=== PATIENT | male | born 1950 | race Caucasian/White ===

== ENCOUNTER 2022-08-09 10:16 | Inpatient (IN) | payer MEDICARE ==
[~2022-08-09] VITALS: Ht 180.3 cm; Wt 82.7 kg
[~2022-08-09 10:16] MED LIST: ATOR20TA86 PO; LISI-894 PO
[2022-08-09] MEDS ORDERED: ATEN-187 PO (10:44)
[2022-08-09] MEDS ORDERED: SODIUM CHLORIDE 0.9% 100 ML ONE (10:55)
[2022-08-09] MEDS ORDERED: IOHEXOL 350 MG/ML 100 ML VIAL ONE (10:55)
[2022-08-09 11:06] LABS: GLUCOMETER DEV NAME(LOC) ERT.5; GLUCOSE,POINT OF CARE 92 MG/DL (70-110)
[2022-08-09 11:24] LABS: BASOPHILS % (AUTO) 0.3 % (0.0-2.0); EOSINOPHILS % (AUTO) 0.1 % (1.0-6.0); HEMATOCRIT 53.6 % (41-53); HEMOGLOBIN 17.7 g/dL (13.5-17.5); LYMPHOCYTES # (AUTO) 0.8 K/uL (1.0-4.8); LYMPHOCYTES % (AUTO) 7.4 % (22.0-44.0); MEAN CORPUSCULAR HEMOGLOBIN 32.1 pg (26.0-34.0); MEAN CORPUSCULAR HGB CONC 33.1 G/dL (31.0-37.0); MEAN CORPUSCULAR VOLUME 97 fL (80-100); MONOCYTES # (AUTO) 1.1 K/uL (0.1-1.0); MONOCYTES % (AUTO) 10.4 % (2.0-9.0); NEUTROPHILS # (AUTO) 8.9 K/uL (1.8-7.7); NEUTROPHILS % (AUTO) 81.8 % (40.0-70.0); PLATELET COUNT (AUTO) 250 K/uL (150-450); RED BLOOD CELL COUNT(AUTO) 5.53 MIL/uL (4.50-5.90)
[2022-08-09 11:29] LABS: ANION GAP 14 mmol/L (8-16); CALCIUM, TOTAL 8.7 mg/dL (8.8-10.5); CARBON DIOXIDE 20 mmol/L (22-29); CHLORIDE 104 mmol/L (98-107); CREATININE 0.98 mg/dL (0.60-1.30); GLUCOSE,RANDOM 89 mg/dL (70-110); POTASSIUM 4.1 mmol/L (3.5-5.1); SODIUM SERUM 138 mmol/L (136-145); UREA NITROGEN, BLOOD 16 mg/dL (7-18)
[2022-08-09 11:30] LABS: GLOMERULAR FILTR. RATE CALC > 60 mL/min (>60)
[2022-08-09 11:34] LABS: ALANINE AMINOTRANSFERASE 32 U/L (12-78); ALBUMIN 4.3 g/dL (3.4-5.0); ALKALINE PHOSPHATASE 61 U/L (46-116); ASPARTATE AMINOTRANSFERASE 62 U/L (15-37); TOTAL PROTEIN, SERUM 7.9 g/dL (6.4-8.2)
[2022-08-09 11:39] LABS: INR 1.1 (0.9-1.1); PROTHROMBIN TIME 11.8 SEC (9.4-11.6)
[2022-08-09 13:03] LABS: APPEARANCE,URINE CLEAR (CLEAR); BILIRUBIN,URINE NEGATIVE (NEGATIVE); GLUCOSE, URINE (UA) NEGATIVE (NEGATIVE); KETONES,URINE =>150 mg/dL (NEGATIVE); LEUKOCYTE ESTERASE ,URINE NEGATIVE (NEGATIVE); NITRATE,URINE NEGATIVE (NEGATIVE); OCCULT BLOOD,URINE TRACE (NEGATIVE); PROTEIN,URINE 30-70 mg/dL (NEGATIVE); UROBILINOGEN,URINE <=1.0 mg/dL (<=1.0)
[2022-08-09 13:06] LABS: AMPHET/METH SCREEN,URINE NEGATIVE (NEGATIVE); BARBITURATE SCREEN, URINE NEGATIVE (NEGATIVE); BENZODIAZEPINES SCREEN,URINE NEGATIVE (NEGATIVE); CANNABINOID SCREEN,URINE POSITIVE (NEGATIVE); COCAINE SCREEN,URINE NEGATIVE (NEGATIVE); METHADONE SCREEN, URINE NEGATIVE (NEGATIVE); OPIATE SCREEN,URINE NEGATIVE (NEGATIVE); SPECIFIC GRAVITIY, URINE > 1.050 (1.003-1.030)
[2022-08-09 13:07] LABS: BACTERIA,URINE None Seen /HPF (None Seen); RBC,URINE None Seen /HPF (0-2); WBC,URINE None Seen /HPF (0-5)
[2022-08-09 13:11] LABS: PHENCYCLIDINE SCREEN,URINE NEGATIVE (NEGATIVE)
[2022-08-09] MEDS ORDERED: LORazepam 2 MG/ML VIAL IVP ONE (13:30)
[2022-08-09] MEDS ORDERED: ASPIRIN 81 MG CHEWABLE TABLET PO ONE (14:45)
[2022-08-09] MEDS ORDERED: ACETAMINOPHEN 325 MG TABLET PO PRN (14:45)
[2022-08-09] MEDS ORDERED: ONDANSETRON HCL 4 MG/2 ML VIAL IVP PRN (14:45)
[2022-08-09] MEDS ORDERED: MAGNESIUM HYDROXIDE SUSPENSION 30 ML UDCUP PO PRN (14:45)
[2022-08-09] MEDS ORDERED: HYDROCODONE/ACETAMINOPHEN 5-325 MG TABLET PO PRN (14:45)
[2022-08-09] MEDS ORDERED: BISACODYL 10 MG RECTAL RECTAL SUPPOSITORY PR PRN (14:45)
[2022-08-09] MEDS ORDERED: ASPIRIN 300 MG RECTAL SUPPOSITORY PR ONE (14:45)
[2022-08-09] MEDS ORDERED: MORPHINE SULFATE 2 MG/ML SYRINGE IVP PRN (14:45)
[2022-08-09] MEDS: HEPARIN SODIUM,PORCINE 5,000 UNITS/ML VIAL SQ SCH ×2 (16:29→23:32)
[2022-08-09 17:06] LABS: GLUCOMETER DEV NAME(LOC) ERT.5; GLUCOSE,POINT OF CARE 81 MG/DL (70-110)
[2022-08-09 18:56] LABS: GLUCOMETER DEV NAME(LOC) ERT.5; GLUCOSE,POINT OF CARE 88 MG/DL (70-110)
[2022-08-09 19:20] LABS: COVID AG,FIA SOURCE NASAL SWAB
[2022-08-09] MEDS: DOCUSATE SODIUM 100 MG CAPSULE PO SCH (21:00)
[2022-08-09] MEDS ORDERED: ATORVASTATIN CALCIUM 20 MG TABLET PO SCH (21:00)
[2022-08-09] MEDS: ZOLPIDEM TARTRATE 5 MG TABLET PO PRN (21:18)
[2022-08-09 21:34] VITALS: BP 145/78
[2022-08-10 00:05] VITALS: BP 140/77
[2022-08-10] MEDS ORDERED: SODIUM CHLORIDE 0.9% 1,000 ML ONE (03:39)
[2022-08-10 05:05] VITALS: BP 138/81
[2022-08-10 06:04] LABS: CHOL/HDL RATIO 5.8 (4.2-7.3); THYROID STIMULATING HORMONE 3.49 uIU/mL (0.36-3.74)
[2022-08-10 07:30] VITALS: BP 139/82
[2022-08-10] MEDS: LISINOPRIL 20 MG TABLET PO SCH (09:13)
[2022-08-10] MEDS: ATENOLOL 25 MG TABLET PO SCH (09:14)
[2022-08-10] MEDS: HEPARIN SODIUM,PORCINE 5,000 UNITS/ML VIAL SQ SCH ×2 (09:14→16:34)
[2022-08-10] MEDS: PANTOPRAZOLE SODIUM 40 MG DR TABLET PO SCH (09:14)
[2022-08-10] MEDS: DOCUSATE SODIUM 100 MG CAPSULE PO SCH ×2 (09:14→20:59)
[2022-08-10 11:05] VITALS: BP 124/73
[2022-08-10] MEDS ORDERED: GADOTERATE MEGLUMINE 10 MMOL/20 ML VIAL IVP ONE (15:48)
[2022-08-10 16:05] VITALS: BP 130/75
[2022-08-10] MEDS: CLOPIDOGREL BISULFATE 75 MG TABLET PO SCH (16:34)
[2022-08-10] MEDS: ASPIRIN 81 MG CHEWABLE TABLET PO SCH (16:34)
[2022-08-10] MEDS ORDERED: LORazepam 1 MG TABLET PO ONE (17:00)
[2022-08-10 20:30] VITALS: BP 122/68
[2022-08-10] MEDS: ZOLPIDEM TARTRATE 5 MG TABLET PO PRN (20:59)
[2022-08-10] MEDS ORDERED: ATORVASTATIN CALCIUM 20 MG TABLET PO SCH (21:00)
[2022-08-11] MEDS: HEPARIN SODIUM,PORCINE 5,000 UNITS/ML VIAL SQ SCH ×3 (00:29→16:07)
[2022-08-11 00:40] VITALS: BP 132/74
[2022-08-11 05:50] VITALS: BP 124/75
[2022-08-11] MEDS: ASPIRIN 81 MG CHEWABLE TABLET PO SCH (08:17)
[2022-08-11] MEDS: CLOPIDOGREL BISULFATE 75 MG TABLET PO SCH (08:17)
[2022-08-11] MEDS: LISINOPRIL 20 MG TABLET PO SCH (08:17)
[2022-08-11] MEDS: ATENOLOL 25 MG TABLET PO SCH (08:18)
[2022-08-11] MEDS: PANTOPRAZOLE SODIUM 40 MG DR TABLET PO SCH (08:33)
[2022-08-11] MEDS: DOCUSATE SODIUM 100 MG CAPSULE PO SCH (09:00)
[2022-08-11 12:00] VITALS: BP 129/74
[2022-08-11 14:00] LABS: COVID AG,FIA SOURCE NASAL SWAB
[2022-08-11 16:00] VITALS: BP 116/71
== END 2022-08-11 15:00 | DRG 64 ==
LOC: EMS 10:16 → 5N 20:05
PROVIDERS: ADMIT Internal Medicine; ATTEND Internal Medicine
DX: I63.29 Cerebral infarction due to unspecified occlusion or stenosis of other precerebral arteries (principal); G93.41 Metabolic encephalopathy; I69.351 Hemiplegia and hemiparesis following cerebral infarction affecting right dominant side; I10 Essential (primary) hypertension; Z20.822 Contact with and (suspected) exposure to COVID-19; R29.704 NIHSS score 4; E78.00 Pure hypercholesterolemia, unspecified; Z79.02 Long term (current) use of antithrombotics/antiplatelets; Z79.82 Long term (current) use of aspirin; G51.0 Bell's palsy
CPT/HCPCS: 70496; 70498; 70553; 71045; 74230; 80053; 80061; 80307; 81001; 82948; 82962; 84443; 84484; 85025; 85610; 85730; 86850; 86900; 86901; 92526; 92610; 92611; 93005; 93306; 93880; 97116; 97162; 97530; 99285; J1644; J2060; J2270; J2405; J7030; J7050; Q9967; 36415-L1; 36415-TC; 70450; 70450-TC

== ENCOUNTER 2022-08-11 16:16 | Inpatient (IN) | payer MEDICARE ==
[~2022-08-11] VITALS: Ht 180.3 cm; Wt 81.2 kg
[~2022-08-11 16:16] MED LIST changes: +ATEN-187 PO; -ATOR20TA86 PO
[2022-08-11 17:10] VITALS: BP 147/68
[2022-08-11] MEDS ORDERED: ACETAMINOPHEN 325 MG TABLET PO PRN (17:30)
[2022-08-11] MEDS ORDERED: INFLUENZA VIRUS VACCINE QVS 2022-23 (6MO+)/PF 60 MCG/0.5 ML SYRINGE IM. ONE (20:15)
[2022-08-11 21:00] VITALS: BP 116/68
[2022-08-11] MEDS: ATORVASTATIN CALCIUM 40 MG TABLET PO SCH (21:48)
[2022-08-11] MEDS: MELATONIN 3 MG TABLET PO PRN (21:48)
[2022-08-11] MEDS: DOCUSATE SODIUM 100 MG CAPSULE PO SCH (21:48)
[2022-08-11] MEDS: ETHYL ALCOHOL 62% ANTISEPTIC NASAL SANITIZER 0.6 ML AMPUL NASAL SCH (21:49)
[2022-08-12 08:04] LABS: ALANINE AMINOTRANSFERASE 25 U/L (12-78); ALBUMIN 3.7 g/dL (3.4-5.0); ALKALINE PHOSPHATASE 63 U/L (46-116); ANION GAP 8 mmol/L (8-16); ASPARTATE AMINOTRANSFERASE 30 U/L (15-37); BILIRUBIN,TOTAL 1.4 mg/dL (0.1-1.0); CALCIUM, TOTAL 8.8 mg/dL (8.8-10.5); CARBON DIOXIDE 26 mmol/L (22-29); CHLORIDE 105 mmol/L (98-107); CREATININE 1.08 mg/dL (0.60-1.30); GLUCOSE,RANDOM 101 mg/dL (70-110); POTASSIUM 3.8 mmol/L (3.5-5.1); SODIUM SERUM 139 mmol/L (136-145); TOTAL PROTEIN, SERUM 7.2 g/dL (6.4-8.2); UREA NITROGEN, BLOOD 31 mg/dL (7-18)
[2022-08-12 08:05] LABS: GLOMERULAR FILTR. RATE CALC > 60 mL/min (>60)
[2022-08-12 08:06] LABS: BASOPHILS % (AUTO) 0.4 % (0.0-2.0); EOSINOPHILS % (AUTO) 1.9 % (1.0-6.0); HEMATOCRIT 51.1 % (41-53); LYMPHOCYTES # (AUTO) 1.7 K/uL (1.0-4.8); LYMPHOCYTES % (AUTO) 20.1 % (22.0-44.0); MEAN CORPUSCULAR HEMOGLOBIN 32.2 pg (26.0-34.0); MEAN CORPUSCULAR HGB CONC 33.3 G/dL (31.0-37.0); MEAN CORPUSCULAR VOLUME 97 fL (80-100); MONOCYTES # (AUTO) 1.3 K/uL (0.1-1.0); MONOCYTES % (AUTO) 15.3 % (2.0-9.0); NEUTROPHILS # (AUTO) 5.4 K/uL (1.8-7.7); NEUTROPHILS % (AUTO) 62.3 % (40.0-70.0); PLATELET COUNT (AUTO) 224 K/uL (150-450); RED BLOOD CELL COUNT(AUTO) 5.29 MIL/uL (4.50-5.90); RED CELL DISTRIBUTION WIDTH 14.7 % (11.5-14.5)
[2022-08-12 09:00] VITALS: BP 129/72
[2022-08-12] MEDS: ASPIRIN 81 MG CHEWABLE TABLET PO SCH (10:30)
[2022-08-12] MEDS: ENOXAPARIN SODIUM 40 MG/0.4 ML PF SYRINGE SQ SCH (10:30)
[2022-08-12] MEDS: DOCUSATE SODIUM 100 MG CAPSULE PO SCH ×2 (10:30→21:04)
[2022-08-12] MEDS: CLOPIDOGREL BISULFATE 75 MG TABLET PO SCH (10:31)
[2022-08-12] MEDS: LISINOPRIL 20 MG TABLET PO SCH (10:31)
[2022-08-12] MEDS: ATENOLOL 25 MG TABLET PO SCH (10:31)
[2022-08-12] MEDS: ETHYL ALCOHOL 62% ANTISEPTIC NASAL SANITIZER 0.6 ML AMPUL NASAL SCH ×2 (10:31→21:04)
[2022-08-12] MEDS: BACLOFEN 10 MG TABLET PO PRN (10:36)
[2022-08-12] MEDS: ChlorproMAZINE HCL 25 MG TABLET PO PRN ×2 (16:18→21:05)
[2022-08-12] MEDS: FAMOTIDINE 20 MG TABLET PO SCH (16:18)
[2022-08-12 19:30] VITALS: BP 132/73
[2022-08-12] MEDS: MELATONIN 3 MG TABLET PO PRN (21:04)
[2022-08-12] MEDS: ATORVASTATIN CALCIUM 40 MG TABLET PO SCH (21:04)
[2022-08-13] MEDS: ChlorproMAZINE HCL 25 MG TABLET PO PRN ×2 (03:50→09:59)
[2022-08-13] MEDS: FAMOTIDINE 20 MG TABLET PO SCH (06:36)
[2022-08-13 09:00] VITALS: BP 103/61
[2022-08-13] MEDS ORDERED: DOCUSATE SODIUM 100 MG CAPSULE PO SCH (09:00)
[2022-08-13] MEDS: ASPIRIN 81 MG CHEWABLE TABLET PO SCH (10:02)
[2022-08-13] MEDS: ETHYL ALCOHOL 62% ANTISEPTIC NASAL SANITIZER 0.6 ML AMPUL NASAL SCH ×2 (10:02→20:46)
[2022-08-13] MEDS: LISINOPRIL 20 MG TABLET PO SCH (10:03)
[2022-08-13] MEDS: ATENOLOL 25 MG TABLET PO SCH (10:03)
[2022-08-13] MEDS: MULTIVITAMINS WITH MINERALS, THERAPEUTIC TABLET PO SCH (10:03)
[2022-08-13] MEDS: CLOPIDOGREL BISULFATE 75 MG TABLET PO SCH (10:03)
[2022-08-13] MEDS: ENOXAPARIN SODIUM 40 MG/0.4 ML PF SYRINGE SQ SCH (10:04)
[2022-08-13] MEDS: DOCUSATE SODIUM 250 MG CAPSULE PO SCH ×2 (12:27→20:46)
[2022-08-13] MEDS: PANTOPRAZOLE SODIUM 40 MG DR TABLET PO SCH (15:19)
[2022-08-13] MEDS: BACLOFEN 10 MG TABLET PO PRN ×2 (16:31→22:37)
[2022-08-13 19:43] VITALS: BP 122/66
[2022-08-13] MEDS: ATORVASTATIN CALCIUM 40 MG TABLET PO SCH (20:45)
[2022-08-13] MEDS: MELATONIN 3 MG TABLET PO PRN (22:37)
[2022-08-14] MEDS: PANTOPRAZOLE SODIUM 40 MG DR TABLET PO SCH ×2 (06:45→16:16)
[2022-08-14 07:50] VITALS: BP 122/71
[2022-08-14] MEDS: ETHYL ALCOHOL 62% ANTISEPTIC NASAL SANITIZER 0.6 ML AMPUL NASAL SCH ×2 (07:58→19:55)
[2022-08-14] MEDS: ATENOLOL 25 MG TABLET PO SCH (07:59)
[2022-08-14] MEDS: ASPIRIN 81 MG CHEWABLE TABLET PO SCH (07:59)
[2022-08-14] MEDS: CLOPIDOGREL BISULFATE 75 MG TABLET PO SCH (07:59)
[2022-08-14] MEDS: DOCUSATE SODIUM 250 MG CAPSULE PO SCH ×2 (07:59→19:56)
[2022-08-14] MEDS: LISINOPRIL 20 MG TABLET PO SCH (08:00)
[2022-08-14] MEDS: ENOXAPARIN SODIUM 40 MG/0.4 ML PF SYRINGE SQ SCH (08:00)
[2022-08-14] MEDS: MULTIVITAMINS WITH MINERALS, THERAPEUTIC TABLET PO SCH (08:00)
[2022-08-14] MEDS: DOCUSATE SODIUM 283 MG/5 ML MINI-ENEMA PR PRN (19:55)
[2022-08-14] MEDS: ATORVASTATIN CALCIUM 40 MG TABLET PO SCH (19:56)
[2022-08-14 20:03] VITALS: BP 128/69
[2022-08-14] MEDS: BACLOFEN 10 MG TABLET PO PRN (22:16)
[2022-08-14] MEDS: MELATONIN 3 MG TABLET PO PRN (22:16)
[2022-08-15] MEDS: PANTOPRAZOLE SODIUM 40 MG DR TABLET PO SCH ×2 (06:39→17:29)
[2022-08-15 08:39] VITALS: BP 93/59
[2022-08-15] MEDS: ETHYL ALCOHOL 62% ANTISEPTIC NASAL SANITIZER 0.6 ML AMPUL NASAL SCH ×2 (08:50→21:59)
[2022-08-15] MEDS: ASPIRIN 81 MG CHEWABLE TABLET PO SCH (08:51)
[2022-08-15] MEDS: MULTIVITAMINS WITH MINERALS, THERAPEUTIC TABLET PO SCH (08:52)
[2022-08-15] MEDS: CLOPIDOGREL BISULFATE 75 MG TABLET PO SCH (08:52)
[2022-08-15] MEDS: DOCUSATE SODIUM 250 MG CAPSULE PO SCH ×2 (08:53→21:59)
[2022-08-15] MEDS: ATENOLOL 25 MG TABLET PO SCH (08:54)
[2022-08-15] MEDS: LISINOPRIL 20 MG TABLET PO SCH (08:54)
[2022-08-15] MEDS: ENOXAPARIN SODIUM 40 MG/0.4 ML PF SYRINGE SQ SCH (08:55)
[2022-08-15 20:00] VITALS: BP 135/95
[2022-08-15] MEDS: MELATONIN 3 MG TABLET PO PRN (21:59)
[2022-08-15] MEDS: ATORVASTATIN CALCIUM 40 MG TABLET PO SCH (22:00)
[2022-08-16] MEDS: PANTOPRAZOLE SODIUM 40 MG DR TABLET PO SCH ×2 (06:01→16:26)
[2022-08-16 07:48] VITALS: BP 119/74
[2022-08-16 07:50] VITALS: BP 119/74
[2022-08-16] MEDS: ASPIRIN 81 MG CHEWABLE TABLET PO SCH (07:53)
[2022-08-16] MEDS: ETHYL ALCOHOL 62% ANTISEPTIC NASAL SANITIZER 0.6 ML AMPUL NASAL SCH ×2 (07:53→20:27)
[2022-08-16] MEDS: DOCUSATE SODIUM 250 MG CAPSULE PO SCH ×2 (07:53→20:27)
[2022-08-16] MEDS: ATENOLOL 25 MG TABLET PO SCH (07:54)
[2022-08-16] MEDS: MULTIVITAMINS WITH MINERALS, THERAPEUTIC TABLET PO SCH (07:54)
[2022-08-16] MEDS: CLOPIDOGREL BISULFATE 75 MG TABLET PO SCH (07:54)
[2022-08-16] MEDS: LISINOPRIL 20 MG TABLET PO SCH (07:55)
[2022-08-16] MEDS: ENOXAPARIN SODIUM 40 MG/0.4 ML PF SYRINGE SQ SCH (07:55)
[2022-08-16 20:00] VITALS: BP 132/72
[2022-08-16] MEDS: MELATONIN 3 MG TABLET PO PRN (20:27)
[2022-08-16] MEDS: ATORVASTATIN CALCIUM 40 MG TABLET PO SCH (20:27)
[2022-08-17] MEDS: PANTOPRAZOLE SODIUM 40 MG DR TABLET PO SCH ×2 (06:03→16:54)
[2022-08-17] MEDS: DOCUSATE SODIUM 250 MG CAPSULE PO SCH ×3 (09:00→21:03)
[2022-08-17 09:05] VITALS: BP 143/51
[2022-08-17] MEDS: ASPIRIN 81 MG CHEWABLE TABLET PO SCH (09:59)
[2022-08-17] MEDS: MULTIVITAMINS WITH MINERALS, THERAPEUTIC TABLET PO SCH (09:59)
[2022-08-17] MEDS: LISINOPRIL 20 MG TABLET PO SCH (09:59)
[2022-08-17] MEDS: CLOPIDOGREL BISULFATE 75 MG TABLET PO SCH (10:00)
[2022-08-17] MEDS: ENOXAPARIN SODIUM 40 MG/0.4 ML PF SYRINGE SQ SCH (10:00)
[2022-08-17] MEDS: ATENOLOL 25 MG TABLET PO SCH (10:00)
[2022-08-17] MEDS: ETHYL ALCOHOL 62% ANTISEPTIC NASAL SANITIZER 0.6 ML AMPUL NASAL SCH ×2 (10:01→21:02)
[2022-08-17] MEDS: BACLOFEN 10 MG TABLET PO PRN (10:03)
[2022-08-17 20:10] VITALS: BP 141/88
[2022-08-17] MEDS: ATORVASTATIN CALCIUM 40 MG TABLET PO SCH (21:04)
[2022-08-17] MEDS: MELATONIN 3 MG TABLET PO PRN (21:04)
[2022-08-18] MEDS: PANTOPRAZOLE SODIUM 40 MG DR TABLET PO SCH ×2 (06:41→16:12)
[2022-08-18] MEDS: ENOXAPARIN SODIUM 40 MG/0.4 ML PF SYRINGE SQ SCH (08:11)
[2022-08-18] MEDS: ETHYL ALCOHOL 62% ANTISEPTIC NASAL SANITIZER 0.6 ML AMPUL NASAL SCH ×2 (08:13→20:13)
[2022-08-18] MEDS: DOCUSATE SODIUM 250 MG CAPSULE PO SCH ×2 (08:15→20:13)
[2022-08-18] MEDS: CLOPIDOGREL BISULFATE 75 MG TABLET PO SCH (08:16)
[2022-08-18] MEDS: LISINOPRIL 20 MG TABLET PO SCH (08:16)
[2022-08-18] MEDS: ASPIRIN 81 MG CHEWABLE TABLET PO SCH (08:17)
[2022-08-18] MEDS: MULTIVITAMINS WITH MINERALS, THERAPEUTIC TABLET PO SCH (08:18)
[2022-08-18] MEDS: ATENOLOL 25 MG TABLET PO SCH (08:18)
[2022-08-18 09:06] VITALS: BP 108/75
[2022-08-18] MEDS: ATORVASTATIN CALCIUM 40 MG TABLET PO SCH (20:13)
[2022-08-18 20:30] VITALS: BP 125/53
[2022-08-19] MEDS: PANTOPRAZOLE SODIUM 40 MG DR TABLET PO SCH ×2 (06:41→15:57)
[2022-08-19] MEDS: ETHYL ALCOHOL 62% ANTISEPTIC NASAL SANITIZER 0.6 ML AMPUL NASAL SCH ×2 (07:59→21:20)
[2022-08-19] MEDS: ENOXAPARIN SODIUM 40 MG/0.4 ML PF SYRINGE SQ SCH (08:04)
[2022-08-19] MEDS: MULTIVITAMINS WITH MINERALS, THERAPEUTIC TABLET PO SCH (08:07)
[2022-08-19] MEDS: ATENOLOL 25 MG TABLET PO SCH (08:08)
[2022-08-19] MEDS: ASPIRIN 81 MG CHEWABLE TABLET PO SCH (08:09)
[2022-08-19] MEDS: CLOPIDOGREL BISULFATE 75 MG TABLET PO SCH (08:09)
[2022-08-19] MEDS: LISINOPRIL 20 MG TABLET PO SCH (08:11)
[2022-08-19] MEDS: DOCUSATE SODIUM 250 MG CAPSULE PO SCH ×2 (08:12→21:20)
[2022-08-19 09:05] VITALS: BP 124/71
[2022-08-19 21:00] VITALS: BP 143/74
[2022-08-19] MEDS: MELATONIN 3 MG TABLET PO PRN (21:20)
[2022-08-19] MEDS: ATORVASTATIN CALCIUM 40 MG TABLET PO SCH (21:20)
[2022-08-20] MEDS: PANTOPRAZOLE SODIUM 40 MG DR TABLET PO SCH ×2 (06:05→16:49)
[2022-08-20 08:10] VITALS: BP 123/67
[2022-08-20] MEDS: ASPIRIN 81 MG CHEWABLE TABLET PO SCH (08:25)
[2022-08-20] MEDS: ETHYL ALCOHOL 62% ANTISEPTIC NASAL SANITIZER 0.6 ML AMPUL NASAL SCH ×2 (08:25→20:41)
[2022-08-20] MEDS: DOCUSATE SODIUM 250 MG CAPSULE PO SCH ×2 (08:26→20:41)
[2022-08-20] MEDS: CLOPIDOGREL BISULFATE 75 MG TABLET PO SCH (08:26)
[2022-08-20] MEDS: ATENOLOL 25 MG TABLET PO SCH (08:27)
[2022-08-20] MEDS: ENOXAPARIN SODIUM 40 MG/0.4 ML PF SYRINGE SQ SCH (08:27)
[2022-08-20] MEDS: MULTIVITAMINS WITH MINERALS, THERAPEUTIC TABLET PO SCH (08:27)
[2022-08-20] MEDS: LISINOPRIL 20 MG TABLET PO SCH (08:27)
[2022-08-20] MEDS: BACLOFEN 10 MG TABLET PO PRN (13:09)
[2022-08-20 20:10] VITALS: BP 104/65
[2022-08-20] MEDS: ATORVASTATIN CALCIUM 40 MG TABLET PO SCH (20:41)
[2022-08-21] MEDS: PANTOPRAZOLE SODIUM 40 MG DR TABLET PO SCH ×2 (06:23→16:21)
[2022-08-21 08:05] VITALS: BP 131/71
[2022-08-21] MEDS: ASPIRIN 81 MG CHEWABLE TABLET PO SCH (08:59)
[2022-08-21] MEDS: CLOPIDOGREL BISULFATE 75 MG TABLET PO SCH (08:59)
[2022-08-21] MEDS: ETHYL ALCOHOL 62% ANTISEPTIC NASAL SANITIZER 0.6 ML AMPUL NASAL SCH ×2 (08:59→20:44)
[2022-08-21] MEDS: ATENOLOL 25 MG TABLET PO SCH (08:59)
[2022-08-21] MEDS: DOCUSATE SODIUM 250 MG CAPSULE PO SCH ×2 (08:59→20:44)
[2022-08-21] MEDS: ENOXAPARIN SODIUM 40 MG/0.4 ML PF SYRINGE SQ SCH (09:00)
[2022-08-21] MEDS: LISINOPRIL 20 MG TABLET PO SCH (09:00)
[2022-08-21] MEDS: MULTIVITAMINS WITH MINERALS, THERAPEUTIC TABLET PO SCH (09:00)
[2022-08-21] MEDS: DOCUSATE SODIUM 283 MG/5 ML MINI-ENEMA PR PRN (18:52)
[2022-08-21 20:10] VITALS: BP 124/65
[2022-08-21] MEDS: ATORVASTATIN CALCIUM 40 MG TABLET PO SCH (20:44)
[2022-08-22] MEDS: PANTOPRAZOLE SODIUM 40 MG DR TABLET PO SCH ×2 (06:27→15:26)
[2022-08-22] MEDS: ENOXAPARIN SODIUM 40 MG/0.4 ML PF SYRINGE SQ SCH (08:04)
[2022-08-22] MEDS: ETHYL ALCOHOL 62% ANTISEPTIC NASAL SANITIZER 0.6 ML AMPUL NASAL SCH ×2 (08:04→20:42)
[2022-08-22] MEDS: MULTIVITAMINS WITH MINERALS, THERAPEUTIC TABLET PO SCH (08:06)
[2022-08-22] MEDS: ASPIRIN 81 MG CHEWABLE TABLET PO SCH (08:11)
[2022-08-22] MEDS: ATENOLOL 25 MG TABLET PO SCH (08:12)
[2022-08-22] MEDS: CLOPIDOGREL BISULFATE 75 MG TABLET PO SCH (08:13)
[2022-08-22] MEDS: DOCUSATE SODIUM 250 MG CAPSULE PO SCH ×2 (08:14→20:42)
[2022-08-22] MEDS: LISINOPRIL 20 MG TABLET PO SCH (08:15)
[2022-08-22 09:05] VITALS: BP 142/60
[2022-08-22 20:00] VITALS: BP 114/63
[2022-08-22] MEDS: ATORVASTATIN CALCIUM 40 MG TABLET PO SCH (20:42)
[2022-08-23] MEDS ORDERED: LISI-893 PO (02:36)
[2022-08-23] MEDS ORDERED: MULT-248 PO (02:36)
[2022-08-23] MEDS ORDERED: PANT-31 PO (02:36)
[2022-08-23] MEDS ORDERED: ASPI-1450 PO (02:36)
[2022-08-23] MEDS ORDERED: BACL10TA PO (02:36)
[2022-08-23] MEDS ORDERED: CLOP75TA60 PO (02:36)
[2022-08-23] MEDS ORDERED: DOCU-350 PO (02:36)
[2022-08-23] MEDS ORDERED: ATEN-73 PO (02:36)
[2022-08-23] MEDS ORDERED: ATOR40TA28 PO (02:36)
[2022-08-23] MEDS: PANTOPRAZOLE SODIUM 40 MG DR TABLET PO SCH (06:13)
[2022-08-23] MEDS: DOCUSATE SODIUM 250 MG CAPSULE PO SCH ×2 (07:47→20:34)
[2022-08-23] MEDS: ETHYL ALCOHOL 62% ANTISEPTIC NASAL SANITIZER 0.6 ML AMPUL NASAL SCH ×2 (07:47→20:37)
[2022-08-23] MEDS: ASPIRIN 81 MG CHEWABLE TABLET PO SCH (07:47)
[2022-08-23] MEDS: LISINOPRIL 20 MG TABLET PO SCH (07:48)
[2022-08-23] MEDS: ENOXAPARIN SODIUM 40 MG/0.4 ML PF SYRINGE SQ SCH (07:48)
[2022-08-23] MEDS: MULTIVITAMINS WITH MINERALS, THERAPEUTIC TABLET PO SCH (07:48)
[2022-08-23] MEDS: ATENOLOL 25 MG TABLET PO SCH (07:48)
[2022-08-23] MEDS: CLOPIDOGREL BISULFATE 75 MG TABLET PO SCH (07:48)
[2022-08-23 07:50] VITALS: BP 131/74
[2022-08-23] MEDS: ATORVASTATIN CALCIUM 40 MG TABLET PO SCH (20:34)
[2022-08-23 20:49] VITALS: BP 116/76
[2022-08-24 07:45] VITALS: BP 118/73
[2022-08-24] MEDS: DOCUSATE SODIUM 250 MG CAPSULE PO SCH ×2 (07:53→20:19)
[2022-08-24] MEDS: MULTIVITAMINS WITH MINERALS, THERAPEUTIC TABLET PO SCH (07:53)
[2022-08-24] MEDS: LISINOPRIL 20 MG TABLET PO SCH (07:53)
[2022-08-24] MEDS: CLOPIDOGREL BISULFATE 75 MG TABLET PO SCH (07:53)
[2022-08-24] MEDS: ETHYL ALCOHOL 62% ANTISEPTIC NASAL SANITIZER 0.6 ML AMPUL NASAL SCH ×2 (07:53→20:19)
[2022-08-24] MEDS: ENOXAPARIN SODIUM 40 MG/0.4 ML PF SYRINGE SQ SCH (07:53)
[2022-08-24] MEDS: ASPIRIN 81 MG CHEWABLE TABLET PO SCH (07:54)
[2022-08-24] MEDS: ATENOLOL 25 MG TABLET PO SCH (07:54)
[2022-08-24 20:00] VITALS: BP 120/79
[2022-08-24] MEDS: ATORVASTATIN CALCIUM 40 MG TABLET PO SCH (20:19)
[2022-08-24] MEDS ORDERED: PANTOPRAZOLE SODIUM 40 MG DR TABLET PO SCH (21:00)
[2022-08-25] MEDS ORDERED: INFLUENZA VIRUS VACCINE QVS 2022-23 (6MO+)/PF 60 MCG/0.5 ML SYRINGE IM. ONE ×2 (06:00→16:45)
[2022-08-25 07:30] VITALS: BP 149/77
[2022-08-25] MEDS: LISINOPRIL 20 MG TABLET PO SCH (08:01)
[2022-08-25] MEDS: CLOPIDOGREL BISULFATE 75 MG TABLET PO SCH (08:01)
[2022-08-25] MEDS: ETHYL ALCOHOL 62% ANTISEPTIC NASAL SANITIZER 0.6 ML AMPUL NASAL SCH ×2 (08:01→20:53)
[2022-08-25] MEDS: DOCUSATE SODIUM 250 MG CAPSULE PO SCH ×2 (08:02→20:53)
[2022-08-25] MEDS: ASPIRIN 81 MG CHEWABLE TABLET PO SCH (08:02)
[2022-08-25] MEDS: MULTIVITAMINS WITH MINERALS, THERAPEUTIC TABLET PO SCH (08:02)
[2022-08-25] MEDS: ENOXAPARIN SODIUM 40 MG/0.4 ML PF SYRINGE SQ SCH (08:02)
[2022-08-25] MEDS: ATENOLOL 25 MG TABLET PO SCH (08:02)
[2022-08-25 08:40] VITALS: BP 124/68
[2022-08-25] MEDS: CALCIUM CARBONATE 500 MG CHEWABLE TABLET CHEW PRN (11:39)
[2022-08-25] MEDS: PANTOPRAZOLE SODIUM 40 MG DR TABLET PO SCH ×2 (11:44→16:04)
[2022-08-25 20:00] VITALS: BP 132/70
[2022-08-25] MEDS: ATORVASTATIN CALCIUM 40 MG TABLET PO SCH (20:53)
[2022-08-26] MEDS: CALCIUM CARBONATE 500 MG CHEWABLE TABLET CHEW PRN (01:00)
[2022-08-26] MEDS: PANTOPRAZOLE SODIUM 40 MG DR TABLET PO SCH ×2 (06:02→16:07)
[2022-08-26 08:00] VITALS: BP 123/75
[2022-08-26] MEDS: CLOPIDOGREL BISULFATE 75 MG TABLET PO SCH (08:03)
[2022-08-26] MEDS: ETHYL ALCOHOL 62% ANTISEPTIC NASAL SANITIZER 0.6 ML AMPUL NASAL SCH ×2 (08:03→21:10)
[2022-08-26] MEDS: ASPIRIN 81 MG CHEWABLE TABLET PO SCH (08:03)
[2022-08-26] MEDS: DOCUSATE SODIUM 250 MG CAPSULE PO SCH ×2 (08:03→21:00)
[2022-08-26] MEDS: ATENOLOL 25 MG TABLET PO SCH (08:04)
[2022-08-26] MEDS: MULTIVITAMINS WITH MINERALS, THERAPEUTIC TABLET PO SCH (08:04)
[2022-08-26] MEDS: ENOXAPARIN SODIUM 40 MG/0.4 ML PF SYRINGE SQ SCH (08:04)
[2022-08-26] MEDS: LISINOPRIL 20 MG TABLET PO SCH (08:04)
[2022-08-26] MEDS ORDERED: ATEN-73 PO (08:41)
[2022-08-26] MEDS ORDERED: MULT-1239 PO (08:41)
[2022-08-26] MEDS ORDERED: ASPI81 PO (08:41)
[2022-08-26] MEDS ORDERED: ATOR40TA71 PO (08:41)
[2022-08-26] MEDS ORDERED: CLOP75TA60 PO (08:41)
[2022-08-26] MEDS ORDERED: PANT-31 PO (08:41)
[2022-08-26] MEDS ORDERED: LISI-894 PO (08:41)
[2022-08-26 19:47] VITALS: BP 123/66
[2022-08-26] MEDS: ATORVASTATIN CALCIUM 40 MG TABLET PO SCH (21:09)
[2022-08-27] MEDS: PANTOPRAZOLE SODIUM 40 MG DR TABLET PO SCH (06:36)
[2022-08-27 08:00] VITALS: BP 119/69
[2022-08-27] MEDS: CLOPIDOGREL BISULFATE 75 MG TABLET PO SCH (08:22)
[2022-08-27] MEDS: ETHYL ALCOHOL 62% ANTISEPTIC NASAL SANITIZER 0.6 ML AMPUL NASAL SCH (08:22)
[2022-08-27] MEDS: ASPIRIN 81 MG CHEWABLE TABLET PO SCH (08:22)
[2022-08-27] MEDS: DOCUSATE SODIUM 250 MG CAPSULE PO SCH (08:22)
[2022-08-27] MEDS: ATENOLOL 25 MG TABLET PO SCH (08:23)
[2022-08-27] MEDS: MULTIVITAMINS WITH MINERALS, THERAPEUTIC TABLET PO SCH (08:23)
[2022-08-27] MEDS: ENOXAPARIN SODIUM 40 MG/0.4 ML PF SYRINGE SQ SCH (08:23)
[2022-08-27] MEDS: LISINOPRIL 20 MG TABLET PO SCH (08:23)
== END 2022-08-27 13:15 | disposition home or self-care (01) | DRG 64 ==
LOC: 2WR 17:00
PROVIDERS: ADMIT Physical Medicine & Rehabilitation; ATTEND Physical Medicine & Rehabilitation
DX: I63.9 Cerebral infarction, unspecified (principal); G93.41 Metabolic encephalopathy; I69.351 Hemiplegia and hemiparesis following cerebral infarction affecting right dominant side; E78.5 Hyperlipidemia, unspecified; R13.10 Dysphagia, unspecified; R47.1 Dysarthria and anarthria; I10 Essential (primary) hypertension; R47.81 Slurred speech; Z60.2 Problems related to living alone; F41.9 Anxiety disorder, unspecified; R13.11 Dysphagia, oral phase; R06.6 Hiccough; K21.9 Gastro-esophageal reflux disease without esophagitis; K59.00 Constipation, unspecified; Z79.899 Other long term (current) drug therapy; Z79.82 Long term (current) use of aspirin
CPT/HCPCS: 80053; 85025; 87081; 90686; 92507; 92508; 92523; 92526; 93970; 97032; 97110; 97112; 97116; 97150; 97162; 97166; 97530; 97535; 99366; J1650